=== PATIENT | female | born 1965 | race Caucasian/White ===

== ENCOUNTER 2017-01-20 12:42 | Emergency (ER) | payer OTHER ==
[~2017-01-20] VITALS: Ht 160 cm; Wt 72.7 kg
[~2017-01-20 12:42] MED LIST: ADVIN50/60 INH; ALBU1AER9 INH; ASPI-390 PO; IBUP-1277 PO; TYLOTC500 PO
[2017-01-20 12:47] VITALS: TEMP 36.7; Ht 160 cm; Wt 72.7 kg
[2017-01-20] MEDS ORDERED: ALBU18002 INH (12:59)
[2017-01-20] MEDS ORDERED: MoRPHine SULFATE 4 MG/ML 1 ML CARP\\VIAL IV STA (13:33)
[2017-01-20] MEDS ORDERED: ONDANSETRON INJ 2 MG/ML 2 ML VIAL IV STA (13:33)
[2017-01-20 13:40] LABS: HEMATOCRIT 39.9 % (37-47); MEAN CELL VOLUME 86.6 fL (80-100); MEAN CORPUSCULAR HEMOGLOBIN 29.9 pg (25-34); MEAN CORPUSCULAR HGB CONC 34.6 g/dl (32-36); RED BLOOD COUNT 4.61 M/uL (4.2-5.4); WHITE BLOOD COUNT 5.03 K/uL (4.8-10.8)
[2017-01-20 13:43] LABS: BUN/CREATININE RATIO 16.2 (10-20); CALCIUM 9.2 mg/dl (8.5-10.1); CREATININE 0.52 mg/dl (0.60-1.20); POTASSIUM 3.3 mmol/L (3.5-5.1)
[2017-01-20 13:45] LABS: ALB/GLOB RATIO 0.7 (0.9-2)
[2017-01-20 13:56] LABS: BASO % 0.4 %; BASO ABS # 0.02 K/uL (0-0.2); COMPLETE YES; EOS % 1.2 %; IG% 0.2 %; LYMPH % 36.8 %; LYMPH ABS # 1.85 K/uL (1.2-3.4); MEAN PLATELET VOLUME 10.8 fL (7.4-10.4); MONO % 7.2 %; NEUT % 54.2 %; PLATELET COUNT 99 K/uL (130-400); PLT ESTIMATE DECREASED
--- NOTE | 2017-01-20 14:32 | EMERGENCY ROOM VISIT NOTE ---
History Report prepared by Justus: Jesus Vee Under the Supervision of: Dr. Amber Stewart D.O. First contact with patient: 13:30 Chief Complaint: ABDOMINAL PAIN Stated Complaint: BELLY PAIN Nursing Triage Summary: Pt c/o severe abd cramping and diarrhea x3 hrs History of Present Illness The patient is a 51 year old female who presents to the Emergency Room with complaints of severe and persistent periumbilical abdominal pain starting about 6 hours ago. She describes it to be a cramping pain. She also complains of diarrhea. She was at baseline last night. The patient denies fevers, chills, chest pain, shortness of breath, urinary symptoms, or any other complaints. She denies any history of similar symptoms. She has a history of hysterectomy, appendectomy, and cholecystectomy. She denies any history of bowel obstruction or kidney stones. Source of History: patient Onset: about 6 hours ago Position: abdomen (periumbilical ) Symptom Intensity: severe Quality: cramping Timing: other (persistent) Associated Symptoms: + diarrhea, No SOB, No chest pain, No chills, No fevers , No urinary symptoms Review of Systems See HPI for pertinent positives & negatives. A total of 10 systems reviewed and were otherwise negative. Past Medical & Surgical Medical Problems: (1) Cholecystectomy (2) Colitis (3) FAMILY HX-MALIGNANCY NOS (4) HX-CERVICAL MALIGNANCY (5) LUMBAGO (6) Partial hysterectomy (7) TOBACCO USE DISORDER (8) unilateral oophorectomy Surgical Problems: (1) History of partial hysterectomy (2) Hx of cholecystectomy (3) S/P appendectomy Family History Diabetes mellitus FH: GA (myocardial infarction) FH: cancer FH: heart disease Social History Smoking Status: Current Every Day Smoker Drug Use: none Marital Status: Housing Status: unknown Occupation Status: unemployed Current/Historical Medications Scheduled Fluticasone Prop/Salmeterol (Advair Diskus 500/50 60 Dose), 1 PUFF INH BID Scheduled PRN Albuterol Sulfate (Proair Respiclick), 2 PUFFS INH for Wheezing Allergies Coded Allergies: Codeine (Verified Allergy, Unknown, ., 01/20/17) Iodinated Diagnostic Agents (Verified Allergy, Unknown, UNKN, 01/20/17) Physical Exam Vital Signs Date Time Temp Pulse Resp B/P Pulse Ox O2 Delivery O2 Flow Rate FiO2 01/20/17 17:56 90 16 143/89 98 01/20/17 15:50 118 16 154/91 97 Room Air 01/20/17 14:03 132 34 147/124 96 01/20/17 12:47 36.7 116 18 169/76 97 Room Air Physical Exam General: Appears very uncomfortable. HEENT: Head - normocephalic and atraumatic Pupils are equal, round, and reactive to light. Extraocular eye muscles are intact, and sclera are anicteric. Nose - moist nasal mucosa without discharge. Mouth - moist buccal mucosa. Oropharynx is nonerythematous and there is no tonsillar exudate or edema noted. Neck: Supple; no JVD, nuchal rigidity, cervical lymphadenopathy. Heart: Tachycardic rate and regular rhythm. There is a normal S1 and S2 with no murmurs, clicks, or gallops appreciated. Lungs: Clear to auscultation bilaterally with no wheezes, rales, or rhonchi. Abdomen: Soft, pain with palpation around the umbilicus and epigastrium, nondistended, with hypoactive bowel sounds. There are no palpable pulsatile masses or hepatosplenomegaly. There is no guarding, rigidity, or rebound noted. Extremities: No evidence of cyanosis, clubbing, or edema. There are easily palpable peripheral pulses. Skin: warm and dry with good turgor and no rashes. Medical Decision & Procedures ER Provider Diagnostic Interpretation: X-ray results as stated below per interpretation by me and the radiologist: PA CHEST WITH ABDOMINAL SERIES CLINICAL HISTORY: Generalized abdominal pain. FINDINGS: A PA chest radiograph is compared to chest x-ray and chest CT dated 08/28/2015. The cardiomediastinal silhouette is unremarkable. Advanced emphysema and chronic interstitial thickening are similar to previous. No airspace consolidation or pleural effusion is identified. No pneumothorax is seen. The skeletal structures are osteopenic. The bony thorax is grossly intact. Supine and erect abdominal radiographs are correlated with abdominal CT dated 07/08/2015. There is a nonobstructed abdominal bowel gas pattern. No evidence of intraperitoneal free air is seen. Cholecystectomy clips are identified in the right upper quadrant. There are no abnormal abdominal calcifications. The lumbosacral spine and bony pelvis appear intact. IMPRESSION: 1. Emphysema. No acute cardiopulmonary abnormality is seen. 2. Nonobstructed abdominal bowel gas pattern. Electronically signed by: Kenneth Hudson M.D. 01/20/2017 2:36 PM Dictated Date/Time: 01/20/2017 2:33 PM US results as stated below per my review and the radiologist's interpretation: Right upper quadrant ultrasound GALLBLADDER-ABD LIMITED CLINICAL HISTORY: eval liver and left upper abd. Pain pain. Nausea. TECHNIQUE: Ultrasound COMPARISON STUDY: None FINDINGS: Prior cholecystectomy. Distention of the common bile duct at approximately 12 mm. Intrahepatic ducts in general are unremarkable. Prominence of the pancreatic duct 4 mm. Right kidney is negative for hydronephrosis. IMPRESSION: Prior cholecystectomy. Dilatation of the extrahepatic common bile duct and to lesser extent pancreatic duct. Possibility of a distal obstructing lesion or residual choledocholithiasis are diagnostic considerations. Electronically signed by: Alexei Martinez M.D. 01/20/2017 4:28 PM Dictated Date/Time: 01/20/2017 4:24 PM Laboratory Results 01/20/17 13:12 Red Blood Count 4.61, Mean Corpuscular Volume 86.6, Mean Corpuscular Hemoglobin 29.9, Mean Corpuscular Hemoglobin Concent 34.6, Mean Platelet Volume 10.8, Neutrophils (%) (Auto) 54.2, Lymphocytes (%) (Auto) 36.8, Monocytes (%) (Auto) 7.2, Eosinophils (%) (Auto) 1.2, Basophils (%) (Auto) 0.4, Neutrophils # (Auto) 2.73, Lymphocytes # (Auto) 1.85, Monocytes # (Auto) 0.36, Eosinophils # (Auto) 0.06, Basophils # (Auto) 0.02 01/20/17 13:12 Test 01/20/17 13:12 01/20/17 14:40 White Blood Count 5.03 K/uL (4.8-10.8) Red Blood Count 4.61 M/uL (4.2-5.4) Hemoglobin 13.8 g/dL (12.0-16.0) Hematocrit 39.9 % (37-47) Mean Corpuscular Volume 86.6 fL (80-100) Mean Corpuscular Hemoglobin 29.9 pg (25-34) Mean Corpuscular Hemoglobin Concent 34.6 g/dl (32-36) Platelet Count 99 K/uL (130-400) Mean Platelet Volume 10.8 fL (7.4-10.4) Neutrophils (%) (Auto) 54.2 % Lymphocytes (%) (Auto) 36.8 % Monocytes (%) (Auto) 7.2 % Eosinophils (%) (Auto) 1.2 % Basophils (%) (Auto) 0.4 % Neutrophils # (Auto) 2.73 K/uL (1.4-6.5) Lymphocytes # (Auto) 1.85 K/uL (1.2-3.4) Monocytes # (Auto) 0.36 K/uL (0.11-0.59) Eosinophils # (Auto) 0.06 K/uL (0-0.5) Basophils # (Auto) 0.02 K/uL (0-0.2) RDW Standard Deviation 53.9 fL (36.4-46.3) RDW Coefficient of Variation 16.9 % (11.5-14.5) Immature Granulocyte % (Auto) 0.2 % Immature Granulocyte # (Auto) 0.01 K/uL (0.00-0.02) Platelet Estimate DECREASED Anion Gap 11.0 mmol/L (3-11) Est Creatinine Clear Calc Drug Dose 122.3 ml/min Estimated GFR () 128.2 Estimated GFR (Non- 110.6 BUN/Creatinine Ratio 16.2 (10-20) Calcium Level 9.2 mg/dl (8.5-10.1) Total Bilirubin 1.0 mg/dl (0.2-1) Aspartate Amino Transf (AST/SGOT) 133 U/L (15-37) Alanine Aminotransferase (ALT/SGPT) 124 U/L (12-78) Alkaline Phosphatase 185 U/L (45-117) Total Protein 8.1 gm/dl (6.4-8.2) Albumin 3.2 gm/dl (3.4-5.0) Globulin 4.9 gm/dl (2.5-4.0) Albumin/Globulin Ratio 0.7 (0.9-2) Lipase 314 U/L (73-393) Urine Color YELLOW Urine Appearance TURBID (CLEAR) Urine pH 6.5 (4.5-7.5) Urine Specific Crook 1.008 (1.000-1.030) Urine Protein NEG (NEG) Urine Glucose (UA) NEG (NEG) Urine Ketones NEG (NEG) Urine Occult Blood NEG (NEG) Urine Nitrite NEG (NEG) Urine Bilirubin NEG (NEG) Urine Urobilinogen POS (NEG) Urine Leukocyte Esterase SMALL (NEG) Urine WBC (Auto) 1-5 /hpf (0-5) Urine RBC (Auto) 0-4 /hpf (0-4) Urine Hyaline Casts (Auto) 1-5 /lpf (0-5) Urine Epithelial Cells (Auto) >30 /lpf (0-5) Urine Bacteria (Auto) NEG (NEG) Laboratory results per my review. Medications Administered Medications (Trade) Dose Ordered Sig/Antwan Route Start Time Stop Time Status Last Admin Dose Admin Morphine Sulfate (MoRPHine SULFATE INJ) 4 mg NOW STAT IV 01/20/17 13:33 01/20/17 13:35 DC 01/20/17 13:40 4 MG Ondansetron HCl (Zofran Inj) 4 mg NOW STAT IV 01/20/17 13:33 01/20/17 13:35 DC 01/20/17 13:40 4 MG Hydromorphone HCl (Dilaudid Inj) 2 mg NOW STAT IV 01/20/17 15:20 01/20/17 15:21 DC 01/20/17 15:49 2 MG Procedure Zofran Inj 4 mg IV, Morphine Sulfate 4 mg IV, Dilaudid Inj 2 mg IV ED Course 1330: Past medical records reviewed which showed multiple previous records in the Emergency Room where she has had episodes of ileus and multiple evaluations for abdominal pain. The patient was evaluated in room B06. A complete history and physical exam was performed. An IV lock was initiated and labs are drawn as above. 1333: Zofran Inj 4 mg IV, Morphine Sulfate 4 mg IV. The patient went for an obstruction series as described above. 1520: Dilaudid Inj 2 mg IV. The patient is complaining of severe pain. She reported a history of cholecystectomy in 2009. The patient also reported that her liver function test was up in 2006 when she had her hysterectomy and she is unsure about the cause. The patient went for a right upper quadrant ultrasound as described above. 1640: I reevaluated the patient who is much more comfortable. She reported that she does not have a primary care doctor and has never seen a bufferer. 1729: I discussed the patient's case with Dr. Dunne, bufferer with [facility]. 1741: The patient wants to leave. I reviewed with her the risks of leaving against medical advice and she verbalized her understanding. Medical Decision This is a 51 year old female who presents to the Emergency Room with a chief complaint of periumbilical abdominal pain. Differential diagnosis includes but is not limited to small bowel obstruction, ileus, ureteral colic, pancreatitis, gastritis. Her labs showed platelet count 99, normal white count, normal H&H, normal renal function, glucose of 109, total bilirubin of 1, AST of 133, ALT of124, [id number], lipase of 314, urine was positive for leucocyte esterase and urobilinogen. Obstruction series shows no evidence of small bowel obstruction or ileus. The patient did have elevated LFTs. She went for a right upper quadrant ultrasound which showed dilatation of the common bowel duct. I was concerned for this finding. I contacted gastroenterology to further evaluate the patient. However , while we were waiting for them to arrive here in the emergency room, the patient decided she wanted to leave. She was not willing to stay for evaluation by gastroenterology. I reviewed with her the risks of the findings on ultrasound including bacteremia, pancreatitis, hepatitis. I also explained to the patient that she has a low platelet count that would require some additional workup. She still refused admission to the hospital. She signed the appropriate AMA paperwork. However, I explained to her that she was walking to return to the ER at any time for additional workup. Consults Time Called: 172 Consulting Physician: Dr. Dunne, bufferer with [facility] Returned Call: [phone] I discussed the patient's case with Dr. Dunne, bufferer with [facility]. Impression Primary Impression: Hepatitis Additional Impression: Thrombocytopenia Scribe Attestation The scribe's documentation has been prepared under my direction and personally reviewed by me in its entirety. I confirm that the note above accurately reflects all work, treatment, procedures, and medical decision making performed by me. Departure Information Dispostion Home / Self-Care Referrals No Doctor, Assigned (PCP) Forms Call Back Authorization, HOME CARE DOCUMENTATION FORM, IMPORTANT VISIT INFORMATION Patient Instructions My [facility] Additional Instructions You are leaving against my advice. I recommended evaluation by GI - you refused. I am concerned your symptoms will get worse. You are welcome to return to the ER at any time. Your liver function tests are elevated. Problem Qualifiers
--- NOTE | 2017-01-20 14:37 | DIAGNOSTIC IMAGING REPORT ---
PA CHEST WITH ABDOMINAL SERIES CLINICAL HISTORY: Generalized abdominal pain. FINDINGS: A PA chest radiograph is compared to chest x-ray and chest CT dated 08/28/2015. The cardiomediastinal silhouette is unremarkable. Advanced emphysema and chronic interstitial thickening are similar to previous. No airspace consolidation or pleural effusion is identified. No pneumothorax is seen. The skeletal structures are osteopenic. The bony thorax is grossly intact. Supine and erect abdominal radiographs are correlated with abdominal CT dated 07/08/2015. There is a nonobstructed abdominal bowel gas pattern. No evidence of intraperitoneal free air is seen. Cholecystectomy clips are identified in the right upper quadrant. There are no abnormal abdominal calcifications. The lumbosacral spine and bony pelvis appear intact. IMPRESSION: 1. Emphysema. No acute cardiopulmonary abnormality is seen. 2. Nonobstructed abdominal bowel gas pattern. Electronically signed by: Kenneth Hudson M.D. 01/20/2017 2:36 PM Dictated Date/Time: 01/20/2017 2:33 PM
[2017-01-20 15:01] LABS: URINE APPEARANCE TURBID (CLEAR); URINE BILIRUBIN NEG (NEG); URINE COLOR YELLOW; URINE EPITHELIAL CELL AUTO >30 /lpf (0-5); URINE NITRITE NEG (NEG); URINE PH 6.5 (4.5-7.5); URINE SPECIFIC GRAVITY 1.008 (1.000-1.030); UROBILINOGEN POS (NEG); ZZUR CULT IF INDIC CLEAN CATCH NO
[2017-01-20 15:02] LABS: MANUAL MICROSCOPIC REQUIRED? NO; REVIEW REQ? NO
[2017-01-20] MEDS ORDERED: HYDROmorphone INJ 2 MG/ML SYR/VIAL IV STA (15:20)
--- NOTE | 2017-01-20 16:30 | DIAGNOSTIC IMAGING REPORT ---
Right upper quadrant ultrasound GALLBLADDER-ABD LIMITED CLINICAL HISTORY: eval liver and left upper abd. Pain pain. Nausea. TECHNIQUE: Ultrasound COMPARISON STUDY: None FINDINGS: Prior cholecystectomy. Distention of the common bile duct at approximately 12 mm. Intrahepatic ducts in general are unremarkable. Prominence of the pancreatic duct 4 mm. Right kidney is negative for hydronephrosis. IMPRESSION: Prior cholecystectomy. Dilatation of the extrahepatic common bile duct and to lesser extent pancreatic duct. Possibility of a distal obstructing lesion or residual choledocholithiasis are diagnostic considerations. Electronically signed by: Alexei Martinez M.D. 01/20/2017 4:28 PM Dictated Date/Time: 01/20/2017 4:24 PM
[2017-01-20 17:56] VITALS: BP 143/89; PULSE 90; O2SAT 98
== END 2017-01-20 17:57 | disposition left against medical advice (07) ==
LOC: C.EDB 12:43
DX: K75.9 Inflammatory liver disease, unspecified (principal); D69.6 Thrombocytopenia, unspecified; K52.9 Noninfective gastroenteritis and colitis, unspecified; Z85.41 Personal history of malignant neoplasm of cervix uteri; F17.210 Nicotine dependence, cigarettes, uncomplicated; Z83.3 Family history of diabetes mellitus; Z82.49 Family history of ischemic heart disease and other diseases of the circulatory system; Z80.9 Family history of malignant neoplasm, unspecified